=== PATIENT | male | born 1950 | race Caucasian/White ===

== ENCOUNTER 2018-09-23 18:09 | Emergency (ER) | payer OTHER ==
--- NOTE | 2018-09-23 18:20 | EDPHY ---
H & P Time Seen by Provider: 09/23/18 18:16 HPI/ROS: CHIEF COMPLAINT: Really bad heartburn HISTORY OF PRESENT ILLNESS: Patient started with a cough 3 weeks ago, was treated with azithromycin which he has been off for about 2 weeks. He has a history of really bad heartburn for what he says is "decades" describing as a burning in his esophagus. He says that after taking the Zithromax really inflamed is heartburn and today was really severe. All day was really bad he had trouble sleeping last night he tried multiple remedies including aloe vera juice, slippery Elm, and black seed oil all with not the desired effect. Today was really severe burning in his esophagus and the patient stated he felt faint and almost "went unconscious" 4 times just as he has done in the past when it is really bad. He has tried but [place] Pepto-Bismol, did have a previous bad reaction of Prilosec. He has had associated heartburn and decreased oral intake today because of symptoms. He said that he has had these multiple times before for the previous decades and he has been worked up and he is sure it is not his heart. REVIEW OF SYSTEMS: Eye: no change in vision ENT: no sore throat Cardiac: No syncope, no palpitations Pulmonary: no cough or SOB Abdomen: HPI no diarrhea or belly pain Musculoskeletal: no back pain or leg swelling that is new, does have chronic leg edema from his gout, unchanged Skin: no rash Neuro: no headache Constitutional: no fever : no urinary symptoms A comprehensive 10 point review of systems is otherwise negative aside from elements mentioned in the history of present illness. PAST MEDICAL HISTORY: Includes gout, "prediabetes", heartburn Social history: , PCP is [facility] or [facility], no alcohol or tobacco General Appearance: Alert and conversant, cooperative. Eyes: No scleral icterus. ENT, Mouth: Slightly dry mucous membranes. Respiratory: Normal respiratory effort, breath sounds equal, lungs are clear to auscultation. Cardiovascular: Regular rate and rhythm. Gastrointestinal: Abdomen is soft and non tender. No epigastric tenderness or McBurney's point tenderness. Neurological: Alert, face symmetric, normal motor and sensory in extremities. Skin: Warm and dry, no rashes. Musculoskeletal: Some peripheral edema but no calf tenderness. Psychiatric: Not agitated. Emergency Department course/MDM: Low suspicion for pancreatitis or pulmonary embolism or ACS with normal EKG and negative troponin especially given extensive symptoms over the past 2 weeks. Much more likely worsening of his heartburn. Plan for H2 demar, GI cocktail, Carafate, discharge in H2 demar if other diagnostics are negative. 1944: Feels a lot better, likely GERD, stable for discharge. Smoking Status: Never smoked Constitutional: Initial Vital Signs Temperature (C) 37.4 C 09/23/18 18:13 Heart Rate 100 09/23/18 18:13 Respiratory Rate 18 09/23/18 18:13 Blood Pressure 180/109 H 09/23/18 18:13 O2 Sat (%) 92 09/23/18 18:13 O2 Delivery Mode Room Air Allergies/Adverse Reactions: amoxicillin Allergy (Verified 09/23/18 18:11) Home Medications: Medication Instructions Recorded Albuterol [Proventil Inhaler] 1 - 2 puffs IH Q4 #1 mdi 07/21/14 Fluticasone/Salmeter 250/50Mcg 1 puffs IH BID #1 disk 07/21/14 [Advair 250/50 (RX)] Sucralfate [Carafate 1 GM (*)] 1 gm PO ACHS #10 tab 09/23/18 Medical Decision Making - Data Points Laboratory Results: Laboratory Results 09/23/18 18:25 09/23/18 18:25 09/23/18 09/23/18 09/23/18 18:25 18:25 18:25 WBC 11.74 10^3/uL H 10^3/uL (3.80-9.50) RBC 4.38 10^6/uL L 10^6/uL (4.40-6.38) Hgb 13.4 g/dL L g/dL (13.7-17.5) Hct 38.4 % L % (40.0-51.0) MCV 87.7 fL fL (81.5-99.8) MCH 30.6 pg pg (27.9-34.1) MCHC 34.9 g/dL g/dL (32.4-36.7) RDW 13.2 % % (11.5-15.2) Plt Count 268 10^3/uL 10^3/uL (150-400) MPV 8.8 fL fL (8.7-11.7) Neut % (Auto) 64.7 % % (39.3-74.2) Lymph % (Auto) 24.1 % % (15.0-45.0) Curry % (Auto) 7.1 % % (4.5-13.0) Eos % (Auto) 3.0 % % (0.6-7.6) Baso % (Auto) 0.8 % % (0.3-1.7) Nucleat RBC Rel Count 0.0 % % (0.0-0.2) Absolute Neuts (auto) 7.60 10^3/uL H 10^3/uL (1.70-6.50) Absolute Lymphs (auto) 2.83 10^3/uL 10^3/uL (1.00-3.00) Absolute Monos (auto) 0.83 10^3/uL H 10^3/uL (0.30-0.80) Absolute Eos (auto) 0.35 10^3/uL 10^3/uL (0.03-0.40) Absolute Basos (auto) 0.09 10^3/uL 10^3/uL (0.02-0.10) Absolute Nucleated RBC 0.00 10^3/uL 10^3/uL (0-0.01) Immature Gran % 0.3 % % (0.0-1.1) Immature Gran # 0.04 10^3/uL 10^3/uL (0.00-0.10) Sodium 127 mEq/L L mEq/L (135-145) Potassium 4.2 mEq/L mEq/L (3.5-5.2) Chloride 93 mEq/L L mEq/L (97-110) Carbon Dioxide 23 mEq/l mEq/l (22-31) Anion Gap 11 mEq/L mEq/L (6-14) BUN 20 mg/dL mg/dL (7-23) Creatinine 0.9 mg/dL mg/dL (0.7-1.3) Estimated GFR > 60 Glucose 123 mg/dL H mg/dL (70-100) Calcium 9.8 mg/dL mg/dL (8.5-10.4) POC Troponin I 0.01 ng/mL ng/mL (0.00-0.08) Medications Given: Discontinued Medications Al Hydroxide/Mg Hydroxide (Maalox Susp) 30 ml PO ONCE ONE Stop: 09/23/18 18:36 Last Admin: 09/23/18 18:43 Dose: 30 ml Famotidine (Pepcid) 20 mg IVP EDNOW ONE Stop: 09/23/18 18:36 Last Admin: 09/23/18 18:43 Dose: 20 mg Hyoscyamine Sulfate (Levsin, Hyomax-Sl) 0.25 mg PO ONCE ONE Stop: 09/23/18 18:36 Last Admin: 09/23/18 18:43 Dose: 0.25 mg Sodium Chloride (Ns) 1,000 mls @ 0 mls/hr IV EDNOW ONE; Wide Open PRN Reason: Protocol Stop: 09/23/18 18:36 Last Admin: 09/23/18 18:43 Dose: 1,000 mls Lidocaine (Lidocaine 2% Viscous) 15 ml PO ONCE ONE Stop: 09/23/18 18:36 Last Admin: 09/23/18 18:43 Dose: 15 ml Sucralfate (Carafate) 1 gm PO EDNOW ONE Stop: 09/23/18 19:16 Last Admin: 09/23/18 19:33 Dose: 1 gm Point of Care Test Results: Chemistry 09/23/18 18:25 POC Troponin I 0.01 ng/mL ng/mL (0.00-0.08) Departure - Departure Disposition: Home, Routine, Self-Care Clinical Impression: Gastroesophageal reflux disease Condition: Good Instructions: Gastroesophageal Reflux Disease (ED) Additional Instructions: You can use Pepcid [id number] as prescribed on the box. Use oral antacid such as Maalox or Mylanta 30 min before meals for the next 1-2 weeks. Referrals: Daija Roman MD [Medical Doctor] - As per Instructions Prescriptions: Sucralfate [Carafate 1 GM (*)] 1 gm PO ACHS #10 tab
[2018-09-23] MEDS ORDERED: MAG HYDROX/AL HYDROX/SIMETH 30 ML UDCUP PO ONE (18:35)
[2018-09-23] MEDS ORDERED: HYOSCYAMINE SULFATE 0.125 MG TAB PO ONE (18:35)
[2018-09-23] MEDS ORDERED: LIDOCAINE 2% VISCOUS 15 ML UDCUP PO ONE (18:35)
[2018-09-23] MEDS ORDERED: NS 1,000 ML IV ONE (18:35)
[2018-09-23] MEDS ORDERED: FAMOTIDINE 20 MG/2 ML SDV IVP ONE (18:35)
--- NOTE | 2018-09-23 18:37 | CPEKG ---
Test Reason : OPEN Blood Pressure : / mmHG Vent. Rate : 100 BPM Atrial Rate : 100 BPM P-R Int : 217 ms QRS Dur : 088 ms QT Int : 354 ms P-R-T Axes : 054 -20 060 degrees QTc Int : 457 ms Sinus tachycardia Borderline prolonged MI interval Borderline left axis deviation Abnormal R-wave progression, early transition Confirmed by Jeradl Alatorre ([id number]) on 09/23/2018 6:36:29 PM Referred By: Jerald Alatorre Confirmed By:Jerald Alatorre
[2018-09-23 18:45] LABS: PLATELET COUNT 268 10^3/uL (150-400)
[2018-09-23] MEDS ORDERED: SUCRALFATE 1 GM TAB PO ONE (19:15)
[2018-09-23 19:34] VITALS: BP 126/69
== END 2018-09-23 19:57 | disposition home or self-care (01) ==
DX: K21.9 Gastro-esophageal reflux disease without esophagitis (principal); E86.9 Volume depletion, unspecified
CPT/HCPCS: 84484-ER; 96374